=== PATIENT | male | born 1955 | race Caucasian/White ===

== ENCOUNTER → 2020-10-07 | Day surgery (SDC) | payer MEDICARE ==
[~2020-10-07] VITALS: Ht 175.3 cm; Wt 106.6 kg
[~2020-10-07] MED LIST: ATORVASTATIN CA10 MG PO; CARVEDILOL PO; CERTAGEN1 EACH PO; CO Q-10400 MG PO; DIGITEK250 MCG PO; GLUCOSAMINE PO; KADIAN30 MG PO; LASIX40 MG PO; MS CONTIN30 MG PO; NARCAN4 MG INH; OXYCODONE-ACET1 EAC1 PO; PERCOCET 5-3251 EACH PO; POTASSIUM CHLO10 ME1 PO; PRINIVIL10 MG PO; RESVERATROL PO; VIT D3 PO; VOLTAREN100 GM TOP; XARELTO20 MG PO; ZOLOFT100 MG PO; ZOLPIDEM 10MG T10 MG PO; [UNRECOGNIZED DRUG - OTHER] PO
[2020-10-07 07:57] LABS: HGB 13.9 g/dl (13.2-18.0); MCH 31.3 pg (25.0-31.0); MCHC 34.8 g/dL (32.0-36.0); MCV 90.1 fL (78.0-100.0); MPV 9.4 fL (6.0-9.5); RBC 4.44 M/uL (4.70-6.00); RDW 12.4 % (11.5-14.0); WBC 9.2 K/uL (4.0-10.5)
[2020-10-07 08:19] LABS: ALBUMIN 3.6 g/dL (3.4-5.0); BILIRUBIN - TOTAL 0.6 mg/dL (0.2-1.0); BUN/CREAT RATIO (CALC) 19.6 RATIO; CREATININE 0.46 mg/dL (0.67-1.17); GLOBULIN (CALCULATION) 3.4 g/dL; POTASSIUM 3.5 mmol/L (3.5-5.1)
== END | disposition home or self-care (01) ==
LOC: FAS 07:21
PROVIDERS: Surgery
DX: Z12.11 Encounter for screening for malignant neoplasm of colon (principal); M19.90 Unspecified osteoarthritis, unspecified site; I50.9 Heart failure, unspecified; E78.00 Pure hypercholesterolemia, unspecified; F41.9 Anxiety disorder, unspecified; F32.9 Major depressive disorder, single episode, unspecified; I42.9 Cardiomyopathy, unspecified; Z80.0 Family history of malignant neoplasm of digestive organs; Z85.46 Personal history of malignant neoplasm of prostate; Z86.010 Personal history of colon polyps; Z95.810 Presence of automatic (implantable) cardiac defibrillator
CPT/HCPCS: 36415; 80053; J2704; J7120

== ENCOUNTER 2021-06-29 20:53 | Emergency (ER) | payer MEDICARE ==
[~2021-06-29 20:53] MED LIST changes: +ARTHRITIS PAIN100 GM TOP
[2021-06-29 22:21] LABS: BASOPHIL 0.4 % (0-2); HCT 37.2 % (42.0-52.0); LYMPHOCYTE 24.6 % (15-48); MCH 30.4 pg (25.0-31.0); MCHC 32.3 g/dL (32.0-36.0); MCV 94.2 fL (78.0-100.0); MONOCYTE 5.4 % (0-12); MPV 10.2 fL (6.0-9.5); NEUTROPHIL 66.2 % (41-80); NRBC 0; PLT 266 K/uL (150-400); RBC 3.95 M/uL (4.70-6.00); RDW 13.2 % (11.5-14.0); WBC 10.5 K/uL (4.0-10.5)
[2021-06-29 22:26] LABS: INR 1.4 (0.9-1.2); PROTHROMBIN TIME 16.5 SECONDS (11.8-13.4)
[2021-06-29 22:49] LABS: ALBUMIN 3.6 g/dL (3.4-5.0); ALKALINE PHOSHATASE 89 U/L (46-116); ALT 71 U/L (16-63); AST 24 U/L (15-37); BILIRUBIN - TOTAL 0.5 mg/dL (0.2-1.0); BUN 10 mg/dL (7-18); BUN/CREAT RATIO (CALC) 17.9 RATIO; C-REACTIVE PROTEIN <0.20 mg/dL (<=0.90); CHLORIDE 103 mmol/L (98-107); CO2 (BICARBONATE) 30 mmol/L (21-32); CREATININE 0.56 mg/dL (0.67-1.17); GLOBULIN (CALCULATION) 2.9 g/dL; GLUCOSE 172 mg/dL (74-106); LDH 231 U/L (85-227); POTASSIUM 3.4 mmol/L (3.5-5.1); TOTAL PROTEIN 6.5 g/dL (6.4-8.2)
[2021-06-30 00:24] LABS: BILIRUBIN NEGATIVE (NEGATIVE); BLOOD NEGATIVE Ery/uL (NEGATIVE); CLARITY CLEAR (CLEAR); COLOR YELLOW (YELLOW); GLUCOSE (U) NORMAL (NORMAL); LEUKOCYTES NEGATIVE Leu/uL (NEGATIVE); NITRITE NEGATIVE (NEGATIVE); PROTEIN NEGATIVE (NEGATIVE); SPECIFIC GRAVITY 1.025 (1.001-1.030); UROBILINOGEN 0.2 mg/dL (0.2-1.0)
== END 2021-06-30 00:55 | disposition home or self-care (01) ==
LOC: FER 20:53
PROVIDERS: Emergency Medicine
DX: I50.9 Heart failure, unspecified (principal); Z20.822 Contact with and (suspected) exposure to COVID-19
CPT/HCPCS: 36415; 71045; 80053; 80162; 81003; 82728; 83615; 83735; 83880; 84145; 84484; 85025; 85610; 85730; 86140; 93005; J1940; U0002

== ENCOUNTER 2021-08-10 11:47 | Emergency (ER) | payer MEDICARE ==
[2021-08-10 13:12] LABS: BASOPHIL 0.6 % (0-2); EOSINOPHIL 3.4 % (0-7); HCT 37.3 % (42.0-52.0); HGB 12.1 g/dl (13.2-18.0); MCH 29.2 pg (25.0-31.0); MCHC 32.4 g/dL (32.0-36.0); MCV 89.9 fL (78.0-100.0); MONOCYTE 6.5 % (0-12); MPV 10.4 fL (6.0-9.5); NEUTROPHIL 70.2 % (41-80); NRBC 0; PLT 265 K/uL (150-400); RBC 4.15 M/uL (4.70-6.00); RDW 13.9 % (11.5-14.0); WBC 9.3 K/uL (4.0-10.5)
[2021-08-10 13:22] LABS: INR 2.19 (0.9-1.2); PROTHROMBIN TIME 23.5 SECONDS (11.8-13.4); PTT 38.7 SECONDS (24.4-34.7)
[2021-08-10 13:39] LABS: LACTIC ACID 1.6 mmol/L (0.4-1.9)
[2021-08-10 13:42] LABS: ALBUMIN 3.3 g/dL (3.4-5.0); BILIRUBIN - TOTAL 0.7 mg/dL (0.2-1.0); BUN/CREAT RATIO (CALC) 20.8 RATIO; C-REACTIVE PROTEIN 0.6 mg/dL (<=0.90); CREATININE 0.53 mg/dL (0.67-1.17); FT4 (FREE T4) 1.3 ng/dL (0.76-1.46); GLOBULIN (CALCULATION) 3.2 g/dL; MAGNESIUM 1.7 mg/dL (1.8-2.4); POTASSIUM 3.7 mmol/L (3.5-5.1); TOTAL PROTEIN 6.5 g/dL (6.4-8.2)
== END 2021-08-10 23:55 | disposition home or self-care (01) ==
LOC: FER 11:47
PROVIDERS: Emergency Medicine
DX: I48.91 Unspecified atrial fibrillation (principal); Z20.822 Contact with and (suspected) exposure to COVID-19; Z79.01 Long term (current) use of anticoagulants
CPT/HCPCS: 36415; 71045; 80053; 83605; 83735; 83880; 84145; 84439; 84443; 84484; 85025; 85610; 85730; 86140; 93005; J2405; J3475; U0002

== ENCOUNTER 2022-03-15 10:44 | Emergency (ER) | payer MEDICARE ==
[2022-03-15] MEDS ORDERED: OXY-IR 5MG5 MG PO (12:36)
== END 2022-03-15 13:01 | disposition home or self-care (01) ==
LOC: FER 10:44
DX: S52.571A Other intraarticular fracture of lower end of right radius, initial encounter for closed fracture (principal); S52.611A Displaced fracture of right ulna styloid process, initial encounter for closed fracture; S00.31XA Abrasion of nose, initial encounter; I10 Essential (primary) hypertension; I48.91 Unspecified atrial fibrillation; Z79.01 Long term (current) use of anticoagulants; W01.0XXA Fall on same level from slipping, tripping and stumbling without subsequent striking against object, initial encounter; Y92.009 Unspecified place in unspecified non-institutional (private) residence as the place of occurrence of the external cause
CPT/HCPCS: 70450; 73090; 73110

== ENCOUNTER → 2022-03-24 | Day surgery (SDC) | payer MEDICARE ==
[~2022-03-24] VITALS: Ht 175.3 cm; Wt 104.3 kg
[~2022-03-24] MED LIST changes: +DULOXETINE HCL60 MG PO; +GLUCOSAMINE &1 EACH PO; +IRON18 MG PO; +OXY-IR 5MG5 MG PO; +SPIRONOLACTONE25 M1 PO; +VITAMIN D325 MC4 PO; +WARFARIN SODIUM5 MG PO
[2022-03-24 06:36] LABS: HCT 38.1 % (42.0-52.0); HGB 12.8 g/dl (13.2-18.0); MCH 33.1 pg (25.0-31.0); MCHC 33.6 g/dL (32.0-36.0); MCV 98.4 fL (78.0-100.0); RBC 3.87 M/uL (4.70-6.00); RDW 12.7 % (11.5-14.0); WBC 11.2 K/uL (4.0-10.5)
[2022-03-24 07:03] LABS: ALBUMIN 3.2 g/dL (3.4-5.0); BILIRUBIN - TOTAL 0.6 mg/dL (0.2-1.0); BUN/CREAT RATIO (CALC) 30.3 RATIO; CREATININE 0.66 mg/dL (0.67-1.17); GLOBULIN (CALCULATION) 3.4 g/dL; POTASSIUM 3.8 mmol/L (3.5-5.1); TOTAL PROTEIN 6.6 g/dL (6.4-8.2)
== END | disposition home or self-care (01) ==
LOC: FAS 05:57
PROVIDERS: Orthopaedic Surgery
DX: S52.571A Other intraarticular fracture of lower end of right radius, initial encounter for closed fracture (principal); W19.XXXA Unspecified fall, initial encounter; I10 Essential (primary) hypertension; I48.91 Unspecified atrial fibrillation; E78.00 Pure hypercholesterolemia, unspecified; F32.A Depression, unspecified; Z79.899 Other long term (current) drug therapy
CPT/HCPCS: 36415; 71045; 73100; 80053; J0690; J1100; J1170; J1885; J2250; J2405; J2704; J2795; J3010; J7120